=== PATIENT | male | born 1985 | race Caucasian/White ===

== ENCOUNTER 2021-06-18 17:02 | Emergency (ER) | payer OTHER ==
[2021-06-18 17:37] VITALS: BP 107/63; PULSE 64; TEMP 97.9; BMI 22.6
[2021-06-18] MEDS ORDERED: METHOCARBAMOL 500 MG TABLET PO ONE (18:02)
[2021-06-18] MEDS ORDERED: KETOROLAC TROMETHAMINE 30 MG/1 ML VIAL IM ONE (18:02)
[2021-06-18] MEDS ORDERED: KETOROLAC TROMETHAMINE 30 MG/1 ML VIAL ONE (18:03)
[2021-06-18] MEDS ORDERED: METHOCARBAMOL 500 MG TABLET ONE (18:03)
== END 2021-06-18 18:26 | disposition home or self-care (01) ==
LOC: JERFT 17:02
PROC: 3E0233Z Introduction of Anti-inflammatory into Muscle, Percutaneous Approach (ICD-10-PCS; principal; 2021-06-18)
DX: M25.562 Pain in left knee (principal); V29.40XA Motorcycle driver injured in collision with unspecified motor vehicles in traffic accident, initial encounter
CPT/HCPCS: 99284-25